=== PATIENT | male | born 1960 | race Caucasian/White ===

== ENCOUNTER 2016-06-03 00:22 | Emergency (ER) | payer MEDICAID ==
[~2016-06-03] VITALS: Ht 188 cm; Wt 117.5 kg
[~2016-06-03 00:22] MED LIST: METO50TA82 PO
[2016-06-03 00:27] VITALS: BP 113/76
[2016-06-03] MEDS ORDERED: BACITRACIN ZINC OINT 500U/GM, 0.9 GM ONE ×2 (02:43)
== END 2016-06-03 01:18 | disposition home or self-care (01) ==
LOC: ED 00:51
DX: K02.9 Dental caries, unspecified (principal)
CPT/HCPCS: 99283

== ENCOUNTER 2016-06-30 02:32 | Emergency (ER) | payer MEDICAID ==
[~2016-06-30] VITALS: Ht 182.9 cm; Wt 114.2 kg
[2016-06-30 04:03] VITALS: BP 118/76
== END 2016-06-30 04:07 | disposition home or self-care (01) ==
LOC: ED 03:57
DX: K08.89 Other specified disorders of teeth and supporting structures (principal); Z91.041 Radiographic dye allergy status; I10 Essential (primary) hypertension; Z95.0 Presence of cardiac pacemaker
CPT/HCPCS: 99283

== ENCOUNTER 2016-08-22 10:36 | Day surgery (SDC) | payer MEDICAID ==
[2016-08-21 11:55] VITALS: BP 146/91
[2016-08-21 12:27] LABS: BLOOD UREA NITROGEN 20 mg/dL (7-18)
[~2016-08-22] VITALS: Ht 182.9 cm; Wt 110.9 kg
[~2016-08-22 10:36] MED LIST changes: +ASPI-496 PO; +CHOL100018 PO; +METO-99 PO; +TRAM100T13 PO
[2016-08-22] MEDS ORDERED: SODIUM CHLORIDE 0.9% 1,000 ML IV SCH (11:35)
[2016-08-22] MEDS ORDERED: CEFAZOLIN PMX 1GM/50ML 50 ML IVPB ONE (12:00)
[2016-08-22] MEDS ORDERED: FENTANYL PF 100 MCG/2ML ONE ×2 (12:03→12:53)
[2016-08-22] MEDS ORDERED: MIDAZOLAM 1 MG/ML, 5ML ONE (12:03)
[2016-08-22] MEDS ORDERED: CEFAZOLIN 1,000 MG ONE (12:04)
[2016-08-22] MEDS ORDERED: CEFAZOLIN PMX 1GM/50ML 50 ML ONE (12:04)
[2016-08-22] MEDS ORDERED: LIDOCAINE 2%, 20ML ONE (12:04)
[2016-08-22] MEDS ORDERED: DIPHENHYDRAMINE 50 MG/ML, 1ML ONE (12:53)
[2016-08-22] MEDS ORDERED: HYDROcodone/APAP 5/325 TABLET PO PRN (13:30)
[2016-08-22] MEDS ORDERED: SODIUM CHLORIDE FLUSH 10ML SYR IVF SCH (21:00)
== END 2016-08-22 14:50 | disposition home or self-care (01) ==
LOC: CACL 10:36
PROVIDERS: ATTEND Internal Medicine Cardiovascular Disease
DX: Z45.018 Encounter for adjustment and management of other part of cardiac pacemaker (principal); I48.91 Unspecified atrial fibrillation; I10 Essential (primary) hypertension; Z95.0 Presence of cardiac pacemaker; Z79.82 Long term (current) use of aspirin; Z91.09 Other allergy status, other than to drugs and biological substances
CPT/HCPCS: 33228; 36415; 71020; 80048; 85025; 85610; 93005; 99156; 99157; C1785; J0690; J1200; J2250; J3010; J3490

== ENCOUNTER 2016-08-24 17:21 | Emergency (ER) | payer MEDICAID ==
[~2016-08-24] VITALS: Ht 182.9 cm; Wt 114.0 kg
[2016-08-24 17:23] VITALS: BP 133/82
== END 2016-08-24 18:13 | disposition home or self-care (01) ==
LOC: ED 17:41
DX: G89.18 Other acute postprocedural pain (principal); Z48.01 Encounter for change or removal of surgical wound dressing; Z79.82 Long term (current) use of aspirin; I10 Essential (primary) hypertension; Z95.0 Presence of cardiac pacemaker
CPT/HCPCS: 99281

== ENCOUNTER 2017-05-28 11:16 | Inpatient (IN) | payer MEDICAID ==
[~2017-05-28] VITALS: Ht 182.9 cm; Wt 116.6 kg
[~2017-05-28 11:16] MED LIST changes: +CHOL100012 PO; -CHOL100018 PO
[2017-05-28] MEDS ORDERED: NITROGLYCERIN SINGLE TAB 0.4 MG SL ONE (12:19)
[2017-05-28] MEDS ORDERED: ASPIRIN 81 MG TABLET CHEW ONE (12:20)
[2017-05-28 12:30] LABS: BASOPHILS # (AUTO) 0.02 x10^3/uL (0-0.1); BASOPHILS % (AUTO) 0 % (0-1); EOSINOPHILS % (AUTO) 3 % (1-7); LYMPHOCYTES # (AUTO) 1.46 x10^3/uL (1-3.4); LYMPHOCYTES % (AUTO) 19 % (22-44); MD NO; MEAN CORPUSCULAR HEMOGLOBIN 29.2 pg (27.5-34.5); MEAN CORPUSCULAR HGB CONC 33.3 g/dL (33.2-36.2); MEAN CORPUSCULAR VOLUME 87.6 fL (81-97); MEAN PLATELET VOLUME 8.2 fL (7.4-10.4); MONOCYTES # (AUTO) 0.32 x10^3/uL (0.2-0.8); MONOCYTES % (AUTO) 4 % (2-9); NEUTROPHILS # (AUTO) 5.86 x10^3/uL (1.8-6.8); NEUTROPHILS % (AUTO) 75 % (42-75); PLATELET COUNT 339 x10^3/uL (130-400); RED BLOOD COUNT 4.66 x10^6/uL (4.38-5.82); RED CELL DISTRIBUTION WIDTH 13.6 % (9.4-14.8)
[2017-05-28] MEDS ORDERED: NITROGLYCERIN SINGLE TAB 0.4 MG SL PRN (12:30)
[2017-05-28] MEDS ORDERED: SODIUM CHLORIDE FLUSH 10ML SYR IVF ONE (12:30)
[2017-05-28] MEDS ORDERED: ASPIRIN 81 MG TABLET CHEW PO ONE (12:30)
[2017-05-28 12:42] LABS: ALBUMIN 3.6 g/dL (3.4-5.0); ANION GAP 7 mmol/L (5-15); CALCIUM 7.8 mg/dL (8.5-10.1); CHLORIDE 108 mmol/L (98-107)
[2017-05-28 12:50] LABS: INTERNATIONAL NORMALIZED RATIO 0.98 (0.93-1.1); PROTHROMBIN TIME 10.1 Seconds (9.6-11.5)
[2017-05-28 12:51] LABS: TROPONIN I < 0.015 ng/mL (0.000-0.045)
[2017-05-28] MEDS ORDERED: SODIUM CHLORIDE FLUSH 10ML SYR IVF PRN (13:30)
[2017-05-28] MEDS ORDERED: ZOLPIDEM 5MG TABLET PO PRN (15:00)
[2017-05-28] MEDS ORDERED: ONDANSETRON 2MG/ML, 2ML IVPush PRN (15:00)
[2017-05-28] MEDS ORDERED: POLYETHYLENE GLYCOL 17 GM PACKET PO PRN (15:00)
[2017-05-28] MEDS ORDERED: hydrALAzine 20 MG/ML, 1ML IVPush PRN (15:00)
[2017-05-28] MEDS ORDERED: ONDANSETRON ODT 4 MG PO PRN (15:00)
[2017-05-28] MEDS ORDERED: DOCUSATE 100 MG CAPSULE PO PRN (15:00)
[2017-05-28] MEDS ORDERED: LABETALOL 5MG/ML, 20ML IVPush PRN (15:00)
[2017-05-28 15:59] VITALS: BP 142/89
[2017-05-28] MEDS ORDERED: ACETAMINOPHEN 325 MG TABLET PO PRN (16:00)
[2017-05-28] MEDS: SODIUM CHLORIDE 0.9% 1,000 ML IV SCH (16:07)
[2017-05-28] MEDS: GABAPENTIN 300 MG CAPSULE PO SCH ×2 (16:07→20:07)
[2017-05-28] MEDS: HEPARIN 5,000 UNITS/ML, 1ML SQ SCH (16:07)
[2017-05-28] MEDS: HYDROcodone/APAP 5/325 TABLET PO PRN (16:08)
[2017-05-28 18:48] LABS: TROPONIN I < 0.015 ng/mL (0.000-0.045)
[2017-05-28 19:47] VITALS: BP 116/75
[2017-05-28] MEDS: METOPROLOL TARTRATE 100 MG TABLET PO SCH (20:07)
[2017-05-28] MEDS ORDERED: ATORVASTATIN 40 MG TABLET PO SCH (21:00)
[2017-05-29] MEDS: HYDROcodone/APAP 5/325 TABLET PO PRN ×3 (00:46→16:32)
[2017-05-29] MEDS: SODIUM CHLORIDE 0.9% 1,000 ML IV SCH ×3 (00:46→17:14)
[2017-05-29] MEDS: HEPARIN 5,000 UNITS/ML, 1ML SQ SCH ×3 (00:46→16:32)
[2017-05-29 00:49] LABS: TROPONIN I < 0.015 ng/mL (0.000-0.045)
[2017-05-29 00:50] VITALS: BP 121/82
[2017-05-29 03:45] LABS: AMPHETAMINE SCREEN, URINE Negative (Negative); BARBITURATE SCREEN, URINE Negative (Negative); BENZODIAZEPINE SCREEN, URINE Negative (Negative); CANNABINOID SCREEN, URINE Positive (Negative); COCAINE SCREEN, URINE Negative (Negative); METHADONE SCREEN, URINE Negative (Negative); OPIATE SCREEN, URINE Positive (Negative)
[2017-05-29 03:51] LABS: CULTURE INDICATED? NO; MICROSCOPIC NOT IND
[2017-05-29 05:31] LABS: CHLORIDE 111 mmol/L (98-107)
[2017-05-29 05:34] LABS: HEMOGLOBIN A1C 5.4 % (4.2-6.3)
[2017-05-29 05:46] LABS: ANION GAP 7 mmol/L (5-15); CALCIUM 7.9 mg/dL (8.5-10.1); CHOL/HDL RATIO 4.8; CHOLESTEROL, TOTAL 155 mg/dL (140-239); CREATININE 0.97 mg/dL (0.7-1.3); HDL CHOL % 21 % (26-37); HDL CHOLESTEROL (DIRECT) 32 mg/dL (40-60); LDL CHOLESTEROL,CALCULATED 83 mg/dL (54-169); LDL/HDL RATIO 2.6 (0.5-3.0); TRIGLYCERIDES 198 mg/dL (50-200); VLDL CHOLESTEROL 40 mg/dL (0-25)
[2017-05-29] MEDS ORDERED: ASPIRIN 325 MG TABLET EC PO SCH (06:00)
[2017-05-29] MEDS: METOPROLOL TARTRATE 100 MG TABLET PO SCH (08:24)
[2017-05-29] MEDS: GABAPENTIN 300 MG CAPSULE PO SCH ×2 (08:24→16:30)
[2017-05-29 08:28] VITALS: BP 133/85
[2017-05-29] MEDS ORDERED: IBUPROFEN 600 MG TABLET PO PRN (09:30)
[2017-05-29] MEDS ORDERED: METOCLOPRAMIDE 10MG TABLET PO PRN (11:30)
[2017-05-29 14:00] VITALS: BP 109/79
[2017-05-29] MEDS ORDERED: DULO20CA17 PO (16:56)
[2017-05-29] MEDS ORDERED: METO10TA2 PO (16:56)
[2017-05-29] MEDS ORDERED: HYDR-3240 PO (16:56)
[2017-05-29 19:36] VITALS: BP 129/86
[2017-05-29] MEDS ORDERED: DULOXETINE 20 MG CAPSULE.DR PO SCH (21:00)
== END 2017-05-29 21:32 | disposition home or self-care (01) | DRG 313 ==
LOC: ED 13:16 → EDIP 13:17 → ED 13:49 → 5SO 15:57
PROVIDERS: ADMIT Family Medicine; ATTEND Family Medicine
DX: R07.89 Other chest pain (principal); I11.0 Hypertensive heart disease with heart failure; G62.9 Polyneuropathy, unspecified; I50.9 Heart failure, unspecified; F19.20 Other psychoactive substance dependence, uncomplicated; G81.91 Hemiplegia, unspecified affecting right dominant side; M54.9 Dorsalgia, unspecified; G89.29 Other chronic pain; I49.9 Cardiac arrhythmia, unspecified; J45.909 Unspecified asthma, uncomplicated; Z79.82 Long term (current) use of aspirin; Z86.73 Personal history of transient ischemic attack (TIA), and cerebral infarction without residual deficits; Z95.0 Presence of cardiac pacemaker; Z98.1 Arthrodesis status; Z91.041 Radiographic dye allergy status
CPT/HCPCS: 36415; 70450; 71045; 80048; 80061; 80307; 81003; 82040; 82306; 82330; 83036; 83735; 83880; 84100; 84443; 84484; 85025; 85610; 85730; 93005; 99285; J1644; J2405; Q0162; J7030